=== PATIENT | male | born 1965 | race Caucasian/White ===

== ENCOUNTER 2018-08-15 12:34 | Inpatient (IN) | payer OTHER ==
[2018-08-15 14:29] VITALS: BMI 25.5
--- NOTE | 2018-08-15 16:20 | HP ---
CIWA Score Nausea/Vomitin-Mild Nausea/No Vomiting Muscle Tremors: 4-Moderate,w/Arms Extend Anxiety: 4-Mod. Anxious/Guarded Agitation: 4-Moderately Restless Paroxysmal Sweats: 3 Orientation: 0-Oriented Tacttile Disturbances: 0-None Auditory Disturbances: 0-None Visual Disturbances: 0-None Headache: 0-None Present CIWA-Ar Total Score: 16 - Admission Criteria OASAS Guidelines: Admission for Medically Managed Detox: Requires at least one of the followin. CIWA greater than 12 2. Seizures within the past 24 hours 3. Delirium tremens within the past 24 hours 4. Hallucinations within the past 24 hours 5. Acute intervention needed for co occurring medical disorder 6. Acute intervention needed for co occurring psychiatric disorder 7. Severe withdrawal that cannot be handled at a lower level of care (continued vomiting, continued diarrhea, abnormal vital signs) requiring intravenous medication and/or fluids 8. Admission ROS [facility] Chief Complaint: I am drinking alcohol everyday and need to stop and get off this. Allergies/Adverse Reactions: Allergies Allergy/AdvReac Type Severity Reaction Status Date / Time No Known Allergies Allergy Verified 08/15/18 14:13 History of Present Illness: pt is a 53yr old male with a history of alcohol dependence seeking detox for treatment. Pt is also on a MMTP program getting 130mg last medicated today; pending verification. Exam Limitations: No Limitations - Ebola screening Have you traveled outside of the country in the last 21 days: No Have you had contact with anyone from an Ebola affected area: No Have you been sick,other than usual withdrawal symptoms: No Do you have a fever: No - Review of Systems Constitutional: Chills, Diaphoresis, Loss of Appetite, Night Sweats, Changes in sleep EENT: reports: Tearing, Nose Congestion Respiratory: reports: Cough Cardiac: reports: No Symptoms Reported, Syncope (blackouts in the past d/t drinking excessivley) GI: reports: Nausea, Poor Fluid Intake : reports: No Symptoms Reported Musculoskeletal: reports: Muscle Pain Integumentary: reports: Flushing, Sweating Neuro: reports: Headache, Tingling, Tremors Endocrine: reports: Excessive Sweating, Flushing, Intolerance to Cold, Intolerance to Heat Hematology: reports: No Symptoms Reported Psychiatric: reports: Judgement Intact, Mood/Affect Appropiate, Orientated x3, Agitated, Anxious Other Systems: Reviewed and Negative Patient History - Patient Medical History Hx Anemia: No Hx Asthma: No Hx Chronic Obstructive Pulmonary Disease (COPD): No Hx Cancer: No Hx Cardiac Disorders: No Hx Congestive Heart Failure: No Hx Hypertension: No Hx Hypercholesterolemia: No Hx Pacemaker: No HX Cerebrovascular Accident: No Hx Seizures: No Hx Dementia: No Hx Diabetes: No Hx Gastrointestinal Disorders: No Hx Liver Disease: No Hx Genitourinary Disorders: No Hx Sexually Transmitted Disorders: No Hx Renal Disease (ESRD): No Hx Thyroid Disease: No Hx Human Immunodeficiency Virus (HIV): No (negtive) Hx Hepatitis C: No (negative) Hx Depression: Yes (visitiril, zoloft, trazadone) Hx Suicide Attempt: No Hx Bipolar Disorder: No Hx Schizophrenia: No Other Medical History: ptsd,insomnia - Patient Surgical History Past Surgical History: No - PPD History Previous Implant?: Yes Documented Results: Negative w/o proof Implanted On Prior [facility] Admission?: No PPD to be Administered?: Yes - Reproductive History Patient is a Female of Child Bearing Age (11 -55 yrs old): No - Smoking Cessation Smoking history: Current every day smoker Have you smoked in the past 12 months: Yes Aproximately how many cigarettes per day: 10 Hx Chewing Tobacco Use: No Initiated information on smoking cessation: Yes 'Breaking Loose' booklet given: 08/15/18 - Substance & Tx. History Hx Alcohol Use: Yes Hx Substance Use: Yes Substance Use Type: Alcohol, Tranquilizers Hx Substance Use Treatment: Yes (last detox >10yrs ago) - Substances abused Alcohol Substance route: Oral Frequency: Daily Amount used: 2 pints of vodka/(4) 24oz beer Age of first use: 16 Date of last use: 08/15/18 Alprazolam (Xanax) Substance route: Oral Frequency: 1-2 times per week Amount used: 4mg x3=12mg Age of first use: 13 Date of last use: 08/14/18 Family Disease History - Family Disease History Family History: Denies Admission Physical Exam BHS - Vital Signs Vital Signs: Vital Signs - 24 hr 08/15/18 14:19 Temperature 97.4 F L Pulse Rate 61 Respiratory 16 Rate Blood Pressure 90/52 L - Physical General Appearance: Yes: Appropriately Dressed, Moderate Distress, Thin, Tremorous, Irritable, Sweating, Anxious HEENTM: Yes: Hearing grossly Normal, Normal Voice, Nasal Congestion Respiratory: Yes: Lungs Clear, Normal Breath Sounds, No Respiratory Distress Neck: Yes: No masses,lesions,Nodules Breast: Yes: Within Normal Limits Cardiology: Yes: Regular Rhythm, Regular Rate, S1, S2 Abdominal: Yes: Normal Bowel Sounds, Non Tender, Soft Genitourinary: Yes: Within Normal Limits Back: Yes: Normal Inspection Musculoskeletal: Yes: full range of Motion, Back pain, Muscle Pain Extremities: Yes: Normal Capillary Refill, Normal Inspection, Non-Tender, Tremors Neurological: Yes: Fully Oriented, Alert, Normal Response Integumentary: Yes: Normal Color, Diaphoresis Lymphatic: Yes: Within Normal Limits - Diagnostic (1) Sedative, hypnotic or anxiolytic abuse with intoxication, uncomplicated Current Visit: Yes Status: Chronic (2) Methadone maintenance therapy patient Current Visit: Yes Status: Chronic Comment: last medicated today; pending verification (3) Nicotine dependence Current Visit: Yes Status: Chronic Qualifiers: Nicotine product type: cigarettes Substance use status: uncomplicated Qualified Code(s): F17.210 - Nicotine dependence, cigarettes, uncomplicated Cleared for Admission S - Detox or Rehab [facility] Level of Care: Medically Managed Detox Regimen/Protocol: Librium Inpatient Rehab Admission - Rehab Decision to Admit Inpatient rehab admission?: No
[2018-08-15] MEDS ORDERED: chlordiazePOXIDE HCL 25 MG CAPSULE PO PRN (16:32)
[2018-08-15] MEDS ORDERED: MAGNESIUM HYDROX 2400MG/30ML ORAL SUSPENSION 30 ML CUP PO PRN (16:32)
[2018-08-15] MEDS ORDERED: ACETAMINOPHEN 325 MG TABLET (FP) PO PRN ×2 (16:32)
[2018-08-15] MEDS ORDERED: IBUPROFEN 400 MG TABLET (FP) PO PRN ×2 (16:32→16:41)
[2018-08-15] MEDS ORDERED: MAGNESIUM CITRATE 300 ML BOTTLE PO PRN (16:32)
[2018-08-15] MEDS ORDERED: DICYCLOMINE HCL 10 MG CAPSULE PO PRN (16:32)
[2018-08-15] MEDS ORDERED: hydrOXYzine PAMOATE 25 MG CAPSULE (FP) PO PRN (16:32)
[2018-08-15] MEDS ORDERED: ONDANSETRON *ODT* 4 MG TABLET SL PRN (16:32)
[2018-08-15] MEDS ORDERED: MAG HYDROX/AL HYDROX/SIMETH 30 ML UNIT-DOSE CUP PO PRN (16:32)
[2018-08-15] MEDS ORDERED: MENTHOL/PHENOL 1 EACH UD MM PRN (16:32)
[2018-08-15] MEDS ORDERED: BACLOFEN 10 MG TABLET (FP) PO PRN (16:41)
[2018-08-15] MEDS ORDERED: NICOTINE POLACRILEX 4 MG GUM BUC PRN (16:41)
[2018-08-15] MEDS ORDERED: P-EPHED 60MG/TRIPROLIDI 2.5MG TABLET PO PRN (16:41)
[2018-08-15] MEDS: chlordiazePOXIDE HCL 25 MG CAPSULE PO SCH ×2 (18:45→22:09)
[2018-08-15] MEDS: THIAMINE HCL 100 MG TABLET (FP) PO SCH (22:09)
[2018-08-16] MEDS: chlordiazePOXIDE HCL 25 MG CAPSULE PO SCH ×4 (05:47→22:11)
[2018-08-16] MEDS ORDERED: METHADONE HCL 10 MG TABLET PO SCH (07:45)
[2018-08-16] MEDS ORDERED: METHADONE 120 MG, METHADONE 10 MG, METHADONE 5 MG PO SCH (08:20)
--- NOTE | 2018-08-16 09:51 | PN ---
S CIWA - CIWA Score Nausea/Vomitin-Mild Nausea/No Vomiting Muscle Tremors: 3 Anxiety: 2 Agitation: 2 Paroxysmal Sweats: 1-Minimal Palms Moist Orientation: 3-Disoriented Date>2 days Tacttile Disturbances: 0-None Auditory Disturbances: 0-None Visual Disturbances: 0-None Headache: 0-None Present CIWA-Ar Total Score: 12 BHS Progress Note (SOAP) Subjective: feeling ok today trouble slept through the night low energy tired Objective: 08/16/18 09:49 Vital Signs Temperature 97.4 F L 08/16/18 09:29 Pulse Rate 67 08/16/18 09:29 Respiratory Rate 18 08/16/18 09:29 Blood Pressure 105/75 08/16/18 09:29 O2 Sat by Pulse Oximetry (%) lab pending 08/16/18 09:50 Assessment: 08/16/18 09:50 withdrawal sx Plan: continue detox
[2018-08-16] MEDS ORDERED: METHADONE HCL 10 MG TABLET ONE (10:09)
[2018-08-16] MEDS ORDERED: METHADONE HCL 5 MG TABLET ONE (10:10)
[2018-08-16] MEDS ORDERED: METHADONE HCL 40 MG DISPERSABLE TABLET ONE (10:10)
[2018-08-16] MEDS: PRENATAL VITAMINS W/ FOLIC ACID TABLET (FP) PO SCH (10:32)
[2018-08-16] MEDS: METHADONE 120 MG, METHADONE 10 MG, METHADONE 5 MG PO SCH (10:37)
[2018-08-16] MEDS: NICOTINE 21 MG/24 HOURS TOPICAL PATCH TD SCH (10:38)
[2018-08-16 11:03] LABS: HEMATOCRIT 38.6 % (35.4-49); HEMOGLOBIN 13.4 GM/dL (11.7-16.9); MCH 32.8 pg (25.7-33.7); MCHC 34.7 g/dl (32.0-35.9); MEAN CELL VOLUME 94.5 fl (80-96); MEAN PLT VOLUME 7.6 fl (7.5-11.1); PLATELET COUNT 238 K/MM3 (134-434); RBC 4.08 M/mm3 (4.00-5.60); RDW 13.3 % (11.9-15.9)
[2018-08-16 12:16] LABS: ALBUMIN 3.1 g/dl (3.4-5.0); ALK PHOS 104 U/L (45-117); ANION GAP 5 MMOL/L (8-16); BILIRUBIN,TOTAL 0.3 mg/dL (0.2-1); BLOOD UREA NITROGEN 16 mg/dL (7-18); CALCIUM 8.8 mg/dL (8.5-10.1); CHLORIDE 106 mmol/L (98-107); CO2 31 mmol/L (21-32); CREATININE 0.9 mg/dL (0.55-1.3); GLUCOSE,RANDOM 102 mg/dL (74-106); POTASSIUM 4.3 mmol/L (3.5-5.1); SGOT/AST 13 U/L (15-37); SGPT/ALT 17 U/L (13-61); SODIUM 141 mmol/L (136-145); TOT PROT 6.2 g/dl (6.4-8.2)
--- NOTE | 2018-08-16 12:17 | EKG ---
Test Reason : Blood Pressure : / mmHG Vent. Rate : 052 BPM Atrial Rate : 052 BPM P-R Int : 122 ms QRS Dur : 080 ms QT Int : 468 ms P-R-T Axes : 020 065 052 degrees QTc Int : 435 ms SINUS BRADYCARDIA OTHERWISE NORMAL ECG NO PREVIOUS ECGS AVAILABLE Confirmed by ESTHELA DOMINGO MD ([id number]) on 08/16/2018 12:17:06 PM Referred By: Confirmed By:ESTHELA DOMINGO MD
--- NOTE | 2018-08-16 12:18 | CONSULT ---
[facility] Psychiatric Consult - Data Date of interview: 08/16/18 Admission source: [facility] Identifying data: Patient is a 53 year old single male, father of one, unemployed, homeless, and is not receiving financial assistance. This is patient 's first admission to detox at [facility]. Patient admitted to for sedative dependence. Substance Abuse History: Smoking Cessation. Smoking history: Current every day smoker. Have you smoked in the past 12 months: Yes. Aproximately how many cigarettes per day: 10. Hx Chewing Tobacco Use: No. Initiated information on smoking cessation: Yes. 'Breaking Loose' booklet given: 08/15/18. - Substance & Tx. History. Hx Alcohol Use: Yes. Hx Substance Use: Yes. Substance Use Type : Alcohol, Tranquilizers. Hx Substance Use Treatment: Yes (last detox >10yrs ago). - Substances abused. Alcohol. Substance route: Oral. Frequency: Daily. Amount used: 2 pints of vodka/(4) 24oz beer. Age of first use: 16. Date of last use: 08/15/18. Alprazolam (Xanax). Substance route: Oral. Frequency: 1-2 times per week. Amount used: 4mg x3=12mg. Age of first use: 13. Date of last use: 08/14/18 Medical History: Denies, reports good health Psychiatric History: Patient denies h/o psychiatric hospitalization and suicide attempt. States he receives outpatient psychiatric care from [facility] [employer] and is prescribed zoloft 50mg + trazodone (unknown dose). He reports most recently taking his medications two days ago. At present, patient appears fatigue. Patient is on methadone maintence of 135mg daily. He reports having difficulty sleeping last night. Physical/Sexual Abuse/Trauma History: denies. Mental Status Exam - Mental Status Exam Alert and Oriented to: Time, Place, Person Cognitive Function: Good Patient Appearance: Well Groomed Mood: Euthymic Affect: Mood Congruent Patient Behavior: Fatigued Speech Pattern: Appropriate Voice Loudness: Moderately Soft/Quiet Thought Process: Goal Oriented Thought Disorder: Not Present Hallucinations: Denies Suicidal Ideation: Denies Homicidal Ideation: Denies Insight/Judgement: Poor Sleep: Poorly Muscle strength/Tone: Normal Gait/Station: Normal Psychiatric Findings - Problem List ([place] 1, 2,3) (1) Substance induced mood disorder Current Visit: Yes Status: Acute (2) Methadone maintenance therapy patient Current Visit: Yes Status: Chronic Comment: last medicated today; pending verification (3) Nicotine dependence Current Visit: Yes Status: Chronic Qualifiers: Nicotine product type: cigarettes Substance use status: uncomplicated Qualified Code(s): F17.210 - Nicotine dependence, cigarettes, uncomplicated (4) Sedative, hypnotic or anxiolytic abuse with intoxication, uncomplicated Current Visit: Yes Status: Acute (5) Substance-induced sleep disorder Current Visit: Yes Status: Acute - Initial Treatment Plan Initial Treatment Plan: Psychoeducation provided. Detoxification in progress. Will order Zoloft 100mg + Trazodone 50mg HS. Benefits and side effects discussed. Verbal consent given.
[2018-08-16] MEDS: MELATONIN 5 MG TABLETS PO PRN (22:10)
[2018-08-16] MEDS: THIAMINE HCL 100 MG TABLET (FP) PO SCH (22:10)
[2018-08-16] MEDS: traZODone HCL 50 MG TABLET (FP) PO SCH (22:11)
[2018-08-17] MEDS ORDERED: METHADONE HCL 10 MG TABLET ONE (04:16)
[2018-08-17] MEDS ORDERED: METHADONE HCL 40 MG DISPERSABLE TABLET ONE (04:17)
[2018-08-17] MEDS ORDERED: METHADONE HCL 5 MG TABLET ONE (04:17)
[2018-08-17] MEDS: chlordiazePOXIDE HCL 25 MG CAPSULE PO SCH ×2 (05:32→10:14)
[2018-08-17] MEDS: METHADONE 120 MG, METHADONE 10 MG, METHADONE 5 MG PO SCH (05:33)
[2018-08-17] MEDS: NICOTINE 21 MG/24 HOURS TOPICAL PATCH TD SCH (10:13)
[2018-08-17] MEDS: PRENATAL VITAMINS W/ FOLIC ACID TABLET (FP) PO SCH (10:13)
[2018-08-17] MEDS: SERTRALINE HCL 50 MG TABLET (FP) PO SCH (12:43)
--- NOTE | 2018-08-17 15:33 | PN ---
S CIWA - CIWA Score Nausea/Vomitin-Mild Nausea/No Vomiting Muscle Tremors: 2 Anxiety: 1-Mildly Anxious Agitation: 0-Normal Activity Paroxysmal Sweats: 3 Orientation: 0-Oriented Tacttile Disturbances: 1-Very Mild Itch/Numbness Auditory Disturbances: 0-None Visual Disturbances: 2-Mild Sensitivity Headache: 0-None Present CIWA-Ar Total Score: 10 BHS Progress Note (SOAP) Subjective: Interrupted Sleep, Fatigue, Sweating, Tremors, Nausea. Objective: PATIENT A & O X 3, OBSERVED AMBULATING ON UNIT. IN NO ACUTE DISTRESS. 08/17/18 15:32 Vital Signs Temperature 97.8 F 08/17/18 13:19 Pulse Rate 72 08/17/18 13:19 Respiratory Rate 18 08/17/18 13:19 Blood Pressure 94/62 08/17/18 13:19 O2 Sat by Pulse Oximetry (%) Laboratory Tests 08/16/18 08/16/18 08/16/18 07:00 07:00 07:00 WBC 6.0 RBC 4.08 Hgb 13.4 Hct 38.6 MCV 94.5 MCH 32.8 MCHC 34.7 RDW 13.3 Plt Count 238 MPV 7.6 Sodium 141 Potassium 4.3 Chloride 106 Carbon Dioxide 31 Anion Gap 5 L BUN 16 Creatinine 0.9 Creat Clearance w eGFR 88.61 Random Glucose 102 Calcium 8.8 Total Bilirubin 0.3 AST 13 L ALT 17 Alkaline Phosphatase 104 Total Protein 6.2 L Albumin 3.1 L RPR Titer Nonreactive LABS NOTED. Assessment: 08/17/18 15:33 WITHDRAWAL SYMPTOMS. HYPOTENSION. Plan: CONTINUE DETOX. INCREASE DAILY PO FLUID / WATER INTAKE.
[2018-08-17] MEDS ORDERED: chlordiazePOXIDE HCL 10 MG CAPSULE PO PRN (17:00)
[2018-08-17] MEDS: chlordiazePOXIDE HCL 10 MG CAPSULE PO SCH ×2 (17:45→22:11)
[2018-08-17] MEDS: THIAMINE HCL 100 MG TABLET (FP) PO SCH (22:10)
[2018-08-17] MEDS: traZODone HCL 50 MG TABLET (FP) PO SCH (22:10)
[2018-08-18] MEDS ORDERED: METHADONE HCL 10 MG TABLET ONE (04:52)
[2018-08-18] MEDS ORDERED: METHADONE HCL 40 MG DISPERSABLE TABLET ONE (04:52)
[2018-08-18] MEDS ORDERED: METHADONE HCL 5 MG TABLET ONE (04:52)
[2018-08-18] MEDS: chlordiazePOXIDE HCL 10 MG CAPSULE PO SCH ×3 (05:42→17:38)
[2018-08-18] MEDS: METHADONE 120 MG, METHADONE 10 MG, METHADONE 5 MG PO SCH (05:42)
[2018-08-18] MEDS: PRENATAL VITAMINS W/ FOLIC ACID TABLET (FP) PO SCH (10:40)
[2018-08-18] MEDS: SERTRALINE HCL 50 MG TABLET (FP) PO SCH (10:41)
[2018-08-18] MEDS: NICOTINE 21 MG/24 HOURS TOPICAL PATCH TD SCH (10:41)
--- NOTE | 2018-08-18 17:15 | PN ---
S CIWA - CIWA Score Nausea/Vomitin-No Nausea/No Vomiting Muscle Tremors: None Anxiety: 0-No Anxiety, at Ease Agitation: 1-Slight > Activity Paroxysmal Sweats: No Perspiration Orientation: 0-Oriented Tacttile Disturbances: 0-None Auditory Disturbances: 0-None Visual Disturbances: 0-None Headache: 0-None Present CIWA-Ar Total Score: 1 BHS Progress Note (SOAP) Subjective: Patient denies current Withdrawal / Detox symptoms and reports that he feels well overall. Objective: PATIENT A & O X 3, OBSERVED AMBULATING ON UNIT UNASSISTED. IN NO ACUTE DISTRESS. 08/18/18 17:14 Vital Signs Temperature 98.9 F 08/18/18 13:58 Pulse Rate 73 08/18/18 13:58 Respiratory Rate 18 08/18/18 13:58 Blood Pressure 97/66 08/18/18 13:58 O2 Sat by Pulse Oximetry (%) Laboratory Tests 08/16/18 08/16/18 08/16/18 07:00 07:00 07:00 WBC 6.0 RBC 4.08 Hgb 13.4 Hct 38.6 MCV 94.5 MCH 32.8 MCHC 34.7 RDW 13.3 Plt Count 238 MPV 7.6 Sodium 141 Potassium 4.3 Chloride 106 Carbon Dioxide 31 Anion Gap 5 L BUN 16 Creatinine 0.9 Creat Clearance w eGFR 88.61 Random Glucose 102 Calcium 8.8 Total Bilirubin 0.3 AST 13 L ALT 17 Alkaline Phosphatase 104 Total Protein 6.2 L Albumin 3.1 L RPR Titer Nonreactive LABS NOTED. Assessment: 08/18/18 17:14 WITHDRAWAL SYMPTOMS. Plan: CONTINUE DETOX. INCREASE DAILY PO FLUID INTAKE. PATIENT SCHEDULED FOR D/C TOMORROW.
[2018-08-18] MEDS: THIAMINE HCL 100 MG TABLET (FP) PO SCH (22:39)
[2018-08-18] MEDS: traZODone HCL 50 MG TABLET (FP) PO SCH (22:39)
[2018-08-18] MEDS: MELATONIN 5 MG TABLETS PO PRN (22:40)
[2018-08-19] MEDS ORDERED: METHADONE HCL 10 MG TABLET ONE (05:15)
[2018-08-19] MEDS ORDERED: METHADONE HCL 5 MG TABLET ONE (05:15)
[2018-08-19] MEDS ORDERED: METHADONE HCL 40 MG DISPERSABLE TABLET ONE (05:15)
[2018-08-19] MEDS: chlordiazePOXIDE HCL 10 MG CAPSULE PO SCH (05:53)
[2018-08-19] MEDS: METHADONE 120 MG, METHADONE 10 MG, METHADONE 5 MG PO SCH (05:53)
[2018-08-19 06:14] VITALS: TEMP 98.3
[2018-08-19 06:17] VITALS: BP 99/55; PULSE 68
--- NOTE | 2018-08-19 09:25 | DS ---
[facility] Detox Discharge Summary Admission Date: 08/15/18 Discharge Date: 08/19/18 - History Present History: Alcohol Dependence Additional Comments: 53 years old male admitted on 08/15/18 for alcohol withdrawal stabilization completed detox regimen [facility] [place] Pertinent Past History: bring in medication list and lab report to follow up appointment - Physical Exam Results Vital Signs: Vital Signs Temperature 98.3 F 08/19/18 06:14 Pulse Rate 68 08/19/18 06:14 Respiratory Rate 18 08/19/18 06:14 Blood Pressure 99/55 L 08/19/18 06:14 O2 Sat by Pulse Oximetry (%) Pertinent Admission Physical Exam Findings: alcohol withdrawal sx Laboratory Last Values WBC 6.0 K/mm3 (4.0-10.0) 08/16/18 07:00 RBC 4.08 M/mm3 (4.00-5.60) 08/16/18 07:00 Hgb 13.4 GM/dL (11.7-16.9) 08/16/18 07:00 Hct 38.6 % (35.4-49) 08/16/18 07:00 MCV 94.5 fl (80-96) 08/16/18 07:00 MCH 32.8 pg (25.7-33.7) 08/16/18 07:00 MCHC 34.7 g/dl (32.0-35.9) 08/16/18 07:00 RDW 13.3 % (11.9-15.9) 08/16/18 07:00 Plt Count 238 K/MM3 (134-434) 08/16/18 07:00 MPV 7.6 fl (7.5-11.1) 08/16/18 07:00 Sodium 141 mmol/L (136-145) 08/16/18 07:00 Potassium 4.3 mmol/L (3.5-5.1) 08/16/18 07:00 Chloride 106 mmol/L (98-107) 08/16/18 07:00 Carbon Dioxide 31 mmol/L (21-32) 08/16/18 07:00 Anion Gap 5 MMOL/L (8-16) L 08/16/18 07:00 BUN 16 mg/dL (7-18) 08/16/18 07:00 Creatinine 0.9 mg/dL (0.55-1.3) 08/16/18 07:00 Creat Clearance w eGFR 88.61 (>60) 08/16/18 07:00 Random Glucose 102 mg/dL (74-106) 08/16/18 07:00 Calcium 8.8 mg/dL (8.5-10.1) 08/16/18 07:00 Total Bilirubin 0.3 mg/dL (0.2-1) 08/16/18 07:00 AST 13 U/L (15-37) L 08/16/18 07:00 ALT 17 U/L (13-61) 08/16/18 07:00 Alkaline Phosphatase 104 U/L (45-117) 08/16/18 07:00 Total Protein 6.2 g/dl (6.4-8.2) L 08/16/18 07:00 Albumin 3.1 g/dl (3.4-5.0) L 08/16/18 07:00 RPR Titer Nonreactive (NONREACTIVE) 08/16/18 07:00 lab noted agrees to return to methadone maintenance program - Treatment Hospital Course: Detox Protocol Followed, Detoxed Safely, Responded well, Discharged Condition Good, Rehab Referral Accepted Patient has Accepted a Rehab Referral to: [facility] - Medication Discharge Medications: Ambulatory Orders Sertraline HCl [Zoloft -] 50 mg PO DAILY 08/15/18 hydrOXYzine PAMOATE [Vistaril -] 100 mg PO DAILY 08/15/18 traZODone HCL [Trazodone HCl] 100 mg PO HS 08/15/18 - Diagnosis (1) Substance induced mood disorder Status: Suspected (2) Nicotine dependence Status: Acute Qualifiers: Nicotine product type: cigarettes Substance use status: in withdrawal Qualified Code(s): F17.213 - Nicotine dependence, cigarettes, with withdrawal (3) Methadone maintenance therapy patient Status: Chronic - AMA Did Patient Leave Against Medical Advice: No
== END 2018-08-19 09:01 | disposition home or self-care (01) | DRG 773 ==
LOC: YASAS 12:34 → Y3N 16:42
PROVIDERS: ADMIT Surgery; ATTEND Surgery
PROC: HZ2ZZZZ Detoxification Services for Substance Abuse Treatment (ICD-10-PCS; principal; 2018-08-15)
DX: F10.230 Alcohol dependence with withdrawal, uncomplicated (principal); F11.20 Opioid dependence, uncomplicated; F13.230 Sedative, hypnotic or anxiolytic dependence with withdrawal, uncomplicated; F17.213 Nicotine dependence, cigarettes, with withdrawal; F19.24 Other psychoactive substance dependence with psychoactive substance-induced mood disorder; I95.9 Hypotension, unspecified
CPT/HCPCS: 36415; 80053; 85027; 86593; 93005; 93010